=== PATIENT | male | born 1965 | race Caucasian/White ===

== ENCOUNTER 2017-06-17 11:43 | Observation (INO) | payer SELFPAY ==
[2017-06-17 12:05] LABS: Hematocrit 45.4 % (42.0-52.0); Hemoglobin 15.4 gm/dL (13.5-18.0); Mean Corpuscular Hemoglobin 30.2 pg (27-31); Mean Corpuscular Hgb Conc 33.9 g/dl (32-36); Mean Platelet Volume 9.8 fl (6.0-9.5); Neutrophil # 6.9 K/mm3 (1.3-6.0); Neutrophil % 66.2 % (42-75.0); Platelet Count 236 K/mm3 (150-450); Red Cell Distribution Width 12.5 % (11.5-14.0); White Blood Count 10.5 K/mm3 (4.0-10.5)
[2017-06-17 12:28] LABS: ALT 23 U/L (19-67); AST 12 U/L (0-48); Albumin * 3.3 gm/dl (3.4-5.0); Alkaline Phosphatase * 96 U/L (50-170); Anion Gap 13.2 mmol/L (6.8-13.8); Bilirubin, Total 0.5 mg/dL (0.0-1.1); Blood Urea Nitrogen 19 mg/dL (6-23); Ca. Corrected For Albumin 8.5 mg/dL (8.4-10.2); Calcium * 8.3 mg/dL (7.9-10.9); Carbon Dioxide 25.9 mmol/L (24-32.6); Chloride 105 mmol/L (97-106); Glucose * 108 mg/dL (70-110); Potassium 4.1 mmol/L (3.4-4.6); Salicylate Less than 2.8 mg/dL (2.8-20.0); Sodium 140 mmol/L (132-142); TSH * 0.753 uIU/mL (0.358-3.74); Total Protein 6.6 gm/dL (6.2-8.2)
[2017-06-17 14:17] LABS: Cocaine Ur Negative (NEGATIVE); Urine Barbiturate Negative (NEGATIVE); Urine Opiates Negative (NEGATIVE); Urine PCP Negative (NEGATIVE)
[2017-06-17 14:18] LABS: Urine Benzodiazepines Positive (NEGATIVE); Urine THC Positive (NEGATIVE)
[2017-06-17] MEDS ORDERED: NORMAL SALINE 1,000 ML IV ONE (14:54)
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
[2017-06-17] MEDS ORDERED: DEXTROSE 5%-0.5 NORMAL SALINE 1,000 ML IV PRN (17:39)
[2017-06-18] MEDS ORDERED: NICOTINE 21 MG PATC TD SCH (04:30)
--- NOTE | 2017-06-18 10:46 | PN ---
Progess Note - Interim Narrative: 06/18/17 10:45 Medically stable. Awaiting Psych consult.
[2017-06-18 11:04] VITALS: BP 122/81
--- NOTE | 2017-06-18 16:43 | DS ---
(1) Overdose Problem: Acute Qualifiers: Encounter type: initial encounter (2) Suicidal risk Problem: Acute (3) ETOH abuse Problem: Chronic (4) Narcotic addiction Problem: Chronic (5) Smoker Problem: Chronic Description of Stay: Ellie Pelayo, is a 51-year-old white male, patient of Dr. Lei, with previous medical history of depression, alcohol and narcotic abuse, who was admitted because of an overdose on 06/17/2070. Per emergency room notes the patient presented with the police because by report " he texted family that he was going to overdose on Xanax today. police called. he had a warrant out and police wanted him checked to see if he could go to longterm. He denies OD, states he did not even actually text this. He denies OD. Family does arrive and show me the texts he sent. he denies any drug overdose or intent. He denies prior hospitalization for psychiatric illness. He denies any CP or SOB. No other complaints." Patient woke with name call and knew where he was. He says that it was his girlfriend who did the texting and gave him the pills to sleep. He denies suicidal thoughts /ideation or attempt. He was still drowsy and went back to sleep. The patient did not have respiratory depression and when he woke up he pulled out his IV lines and telemetry pads. He is medically stable to be discharged . Dr. Walls saw the patient and has cleared him for discharge and to follow up with im in 1 week. Procedures Performed: none Discharge Disposition: [facility] Disposition: [facility] Condition: Stable Discharge Activity: Activity as tolerated Discharge Diet: General/regular food Problem Oriented Discharge Instructions to Patient/Family: Drug Overdose Additional Patient Instructions (free text): Follow up with is PCP in 2 weeks. Follow up with Dr. Walls in 1 week. Complete Home Medications List: Complete Home Medication List: NK [No Home Medication] 06/17/17
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
== END 2017-06-18 19:35 ==
LOC: ER 11:43 → SCU 14:47
PROVIDERS: ADMIT Internal Medicine; ATTEND Internal Medicine
DX: T65.91XA Toxic effect of unspecified substance, accidental (unintentional), initial encounter (principal); F19.20 Other psychoactive substance dependence, uncomplicated; F17.200 Nicotine dependence, unspecified, uncomplicated; F43.10 Post-traumatic stress disorder, unspecified; F32.9 Major depressive disorder, single episode, unspecified; Z63.4 Disappearance and death of family member
CPT/HCPCS: 36415; 80053; 80307; 84443; 85025; 93005; 99284; G0378; G0480; G0481